=== PATIENT | male | born 1995 | race Asian ===

== ENCOUNTER 2021-04-08 00:25 | Emergency (ER) | payer SELFPAY ==
[~2021-04-08] VITALS: Ht 180.3 cm; Wt 79.0 kg
[2021-04-08] MEDS ORDERED: KETOROLAC 60MG/2ML VIAL IM STA (00:57)
[2021-04-08] MEDS ORDERED: ONDANSETRON HCL 4MG/2ML INJ IV STA (01:39)
[2021-04-08] MEDS ORDERED: MORPHINE SULFATE 4 MG/ML CPJ (NOT FOR IM USE) IV STA (01:39)
[2021-04-08] MEDS ORDERED: SODIUM CHLORIDE 0.9% 1,000 ML IV ONE (01:45)
[2021-04-08] MEDS ORDERED: MORPHINE SULFATE 4 MG/ML CPJ (NOT FOR IM USE) IV ONE ×2 (02:45→04:45)
[2021-04-08] MEDS ORDERED: ETOMIDATE 2MG/ML 10ML VIAL IV ONE (02:45)
[2021-04-08] MEDS ORDERED: IBUP-2028 MT (06:14)
[2021-04-08 07:19] VITALS: BP 119/81
== END 2021-04-08 07:21 | disposition home or self-care (01) ==
LOC: ER 00:25
DX: S43.084A Other dislocation of right shoulder joint, initial encounter (principal); Y93.41 Activity, dancing; Y93.89 Activity, other specified; Y92.89 Other specified places as the place of occurrence of the external cause; J45.909 Unspecified asthma, uncomplicated; Z98.890 Other specified postprocedural states
CPT/HCPCS: 23650; 73030; 96361; 96374; 96375; 96376; 99152; 99285; J2270; J3490; J7030; J7040; Z7610